=== PATIENT | female | born 1990 | race Caucasian/White ===

== ENCOUNTER 2018-01-24 11:46 | Emergency (ER) | payer OTHER ==
--- NOTE | 2018-01-24 12:17 | ED PDOC ---
Arrival/HPI - General Time Seen by Provider: 01/24/18 12:12 Historian: Patient - History of Present Illness Narrative History of Present Illness (Text): 01/24/18 12:12 27 y/o female, no significant pmh, nkda, c/o lt. foot pain s/p hit by the table about 5 days ago. Aching pain, aggravated by walking, injury resulted from the lt. foot fall from the tablet, no palpitation, no rash, no night sweat, no rash , no other medical or psychological complaints. Past Medical History - Provider Review Nursing Documentation Reviewed: Yes Family/Social History - Physician Review Nursing Documentation Reviewed: Yes Family/Social History: Unknown Family HX Allergies/Home Meds Allergies/Adverse Reactions: Allergies No Known Allergies Allergy (Verified 01/24/18 12:13) Review of Systems - Review of Systems Constitutional: absent: Fatigue, Fevers Eyes: absent: Vision Changes ENT: absent: Hearing Changes Respiratory: absent: SOB, Cough Cardiovascular: absent: Chest Pain Gastrointestinal: absent: Abdominal Pain, Nausea, Vomiting Musculoskeletal: Arthralgias, Myalgias. absent: Back Pain, Neck Pain, Joint Swelling Skin: absent: Rash, Pruritis Neurological: absent: Headache Psychiatric: absent: Anxiety, Depression, Suicidal Ideation Physical Exam Vital Signs Temp Pulse Resp Pulse Ox 01/24/18 12:09 98 F 88 16 99 - Systems Exam Head: Present: Atraumatic, Normocephalic Pupils: Present: PERRL Extroacular Muscles: Present: EOMI Conjunctiva: Present: Normal Mouth: Present: Moist Mucous Membranes Neck: Present: Normal Range of Motion Respiratory/Chest: Present: Clear to Auscultation, Good Air Exchange. No: Respiratory Distress, Accessory Muscle Use Cardiovascular: Present: Regular Rate and Rhythm, Normal S1, S2. No: Murmurs Abdomen: No: Tenderness, Distention, Peritoneal Signs Back: Present: Normal Inspection Upper Extremity: Present: Normal Inspection. No: Cyanosis, Edema Lower Extremity: Present: Normal Inspection, Other (Lt. foot: +ttp on the dorsum 1st metatarsal with swelling, no abrasion or laceration, skin intact, sensation intact, motor 5/5, +DPPT pulses, capillary refill< 2 seconds, neurovasuclar intact. ). No: Edema Neurological: Present: GCS=15, CN II-XII Intact, Speech Normal Skin: Present: Warm, Dry, Normal Color. No: Rashes Psychiatric: Present: Alert, Oriented x 3, Normal Insight, Normal Concentration Medical Decision Making ED Course and Treatment: 01/24/18 12:17 - test -motrin -xray -observe and reassess 01/24/18 13:47 -Urine hcg is negative -All explaining about the xray/crutches/history with help of interpretor: Wes De La Torre [id number] -Foot xray show Intra-articular fracture lines seen extending along the medial aspect base proximal phalanx distal phalanx great toe. This maybe acute given the lack of surrounding callus formation and productive change with that one would expect to find in a chronic healed fracture. . Clinical correlation recommended. The questionable mild surrounding soft tissue swelling -Cee tapping, posterior splint, crutche -Discharge home with motrin, cee tape, posterior splint, crutches, ice compression, follow up with your own pmd and catering associate within2 days, return to the ER for any new or worsening signs or symptoms. - RAD Interpretation Radiology Orders: 01/24/18 12:18 FOOT LEFT 3 VIEWS ROUTINE [RAD] Stat PROCEDURE: Left Foot Radiographs. HISTORY: Left foot dorsum swelling, r/o fracture COMPARISON: None. FINDINGS: BONES: Intra-articular fracture lines seen extending along the medial aspect base proximal phalanx distal phalanx great toe. This maybe acute given the lack of surrounding callus formation and productive change with that one would expect to find in a chronic healed fracture. . Clinical correlation recommended. The questionable mild surrounding soft tissue swelling. JOINTS: As above. The no significant degenerative osteoarthritis SOFT TISSUES: As above. There is also moderate dorsal and medial soft tissue swelling most pronounced at the level of the metacarpals. OTHER FINDINGS: No radiopaque foreign body IMPRESSION: Intra-articular fracture lines seen extending along the medial aspect base proximal phalanx distal phalanx great toe. This maybe acute given the lack of surrounding callus formation and productive change with that one would expect to find in a chronic healed fracture. . Clinical correlation recommended. The questionable mild surrounding soft tissue swelling Senior Clerk: Radiologist - Medication Orders Current Medication Orders: Discontinued Medications Ibuprofen (Motrin Tab) 600 mg PO STAT STA Stop: 01/24/18 12:19 Last Admin: 01/24/18 13:06 Dose: 600 mg MAR Pain/Vitals Document 01/24/18 13:06 [facility] (Rec: 01/24/18 13:07 [facility] [id number]) Pain Reassessment Is This A Pain ReAssessment? No Sleep Is patient sleeping during reassessment? No Presence of Pain Presence of Pain Yes Pain Scale Used Pain Scale Used Numeric Location Left, Right or Bilateral Left Pain Location Body Site Foot Description Constant Intensity 4 Scale Used Numeric Aggravating Factors ADL's - PA / GI PHYSICIAN / Resident Statement MD/DO has reviewed & agrees with the documentation as recorded. Disposition/Present on Arrival - Present on Arrival Any Indicators Present on Arrival: No History of DVT/PE: No History of Uncontrolled Diabetes: No Urinary Catheter: No History of Decub. Ulcer: No - Disposition Have Diagnosis and Disposition been Completed?: Yes Diagnosis: Foot contusion, Injury, foot, Foot fracture Disposition: HOME/ ROUTINE Disposition Time: 12:18 Patient Plan: Discharge Patient Problems: Current Active Problems Problem Status Onset Foot contusion Acute Injury, foot Acute Foot fracture Acute Condition: IMPROVED Additional Instructions: -Discharge home with motrin, cee tape, posterior splint, crutches, ice compression, follow up with your own pmd and catering associate within2 days, return to the ER for any new or worsening signs or symptoms. Prescriptions: Ibuprofen [Motrin] 600 mg PO QID PRN #30 tab PRN Reason: Other Referrals: Alexandre See DPM [Staff Provider] - Follow up with primary Forms: WORK NOTE
[2018-01-24 12:32] VITALS: O2SAT 99
--- NOTE | 2018-01-24 13:32 | RAD ---
PROCEDURE: Left Foot Radiographs. HISTORY: Left foot dorsum swelling, r/o fracture COMPARISON: None. FINDINGS: BONES: Intra-articular fracture lines seen extending along the medial aspect base proximal phalanx distal phalanx great toe. This maybe acute given the lack of surrounding callus formation and productive change with that one would expect to find in a chronic healed fracture. . Clinical correlation recommended. The questionable mild surrounding soft tissue swelling. JOINTS: As above. The no significant degenerative osteoarthritis SOFT TISSUES: As above. There is also moderate dorsal and medial soft tissue swelling most pronounced at the level of the metacarpals. OTHER FINDINGS: No radiopaque foreign body IMPRESSION: Intra-articular fracture lines seen extending along the medial aspect base proximal phalanx distal phalanx great toe. This maybe acute given the lack of surrounding callus formation and productive change with that one would expect to find in a chronic healed fracture. . Clinical correlation recommended. The questionable mild surrounding soft tissue swelling Dorsal and medial soft tissue swelling as detailed above. Note that these findings were discussed with emergency room ERLIN Dinh at approximately 1:25 p.m. with written down and read back verification.
[2018-01-24 14:28] VITALS: BP 113/60; PULSE 74; RESP 17; TEMP 98.2
== END 2018-01-24 14:35 | disposition home or self-care (01) ==
LOC: ED 11:46
DX: S90.32XA Contusion of left foot, initial encounter (principal); S92.492A Other fracture of left great toe, initial encounter for closed fracture; W22.8XXA Striking against or struck by other objects, initial encounter; Y92.9 Unspecified place or not applicable